=== PATIENT | male | born 1980 | race Caucasian/White ===

== ENCOUNTER 2025-04-06 11:50 | Day surgery (SDC) | payer OTHER, SELFPAY ==
[2025-04-05 12:20] VITALS: BMI 31.1
[2025-04-06] VITALS (10 sets, daily range): BP systolic 120–138; BP diastolic 45–97; PULSE 76–97; RESP 12–21; TEMP 36.7–37; O2SAT 94–100; BMI 31.1
[2025-04-06] MEDS: SODIUM CHLORIDE 0.9% 500 ML 500 ML 20 ML IV (13:53)
[2025-04-06] MEDS: DiphenhydrAMINE INJ 50 MG/ML VIAL 25 MG IVP (13:53)
[2025-04-06] MEDS: MIDAZOLAM INJ 1 MG/ML VIAL 2 ML (ASD USE ONLY) 2 MG IVP (14:07)
[2025-04-06] MEDS: fentaNYL CIT INJ 50 mCg/ML AMP 2ML (ASD USE ONLY) IVP (14:07)
[2025-04-06] MEDS: ONDANSETRON INJ 2 MG/ML INJ 2 ML 4 MG IVP (14:16)
== END 2025-04-06 14:50 | disposition home or self-care (01) ==
PROVIDERS: PCP Family Medicine; Referring Provider Specialist; Visit Provider Specialist
PROC: 0DBE8ZX Excision of Large Intestine, Via Natural or Artificial Opening Endoscopic, Diagnostic (ICD-10-PCS; CPT 45380; principal; 2025-04-06 12:30)
DX: Z12.11 Encounter for screening for malignant neoplasm of colon (principal); K64.9 Unspecified hemorrhoids
CPT/HCPCS: 45378; J1200; J2250; J2405; J3010; J7040